=== PATIENT | female | born 1980 | race Caucasian/White ===

== ENCOUNTER 2019-02-18 19:20 | Emergency (ER) | payer MEDICARE ==
[2019-02-18] MEDS ORDERED: Fentanyl 100 MCG/2 ML VIAL ONE ×2 (19:34→20:31)
[2019-02-18 20:01] LABS: #Basophils 0.1 thou/uL (0.0-0.2); #Eosinphils 0.1 thou/uL (0.0-0.7); #Lymphocytes 0.6 thou/uL (1.20-3.40); #Monocytes 0.7 thou/uL (0.11-0.59); #Neutrophils 3.4 thou/uL (1.40-6.50); %Basophils 2.2 % (0.0-1.0); %Eosinophils 1.4 % (0.0-10.0); %Lymphocytes 12.7 % (21.0-51.0); %Monocytes 14.7 % (0.0-10.0); Hemoglobin 11.8 g/dL (12.0-16.0); Mean Corpuscular HGB CONC 32.8 g/dL (32.0-36.0); Mean Corpuscular Hemoglobin 32.3 pg (27.0-31.0); Mean Corpuscular Volume 98.6 fL (78.0-98.0); Mean Platelet Volume 7.3 fL (7.4-10.4); Platelet Count 111 thou/uL (130-400); RBC Distribution Width 14.8 % (11.5-14.5); Red Blood Cell (RBC) Count 3.65 mill/uL (4.20-5.40); White Blood Cell (WBC) Count 4.9 thou/uL (4.8-10.8)
[2019-02-18 20:02] LABS: ALT (SGPT) 65 U/L (8-55); AST (SGOT) 100 U/L (5-34); Albumin 4.2 g/dL (3.5-5.0); Alkaline Phosphatase 67 U/L (40-110); Anion Gap 16 mmol/L (10-20); BUN (Urea Nitrogen) 19 mg/dL (7.0-18.7); Bilirubin, Total 0.5 mg/dL (0.2-1.2); Calc. Creatinine Clearance 0 mL/min (70-130); Calcium 8.8 mg/dL (7.8-10.44); Carbon Dioxide 24 mmol/L (22-29); Chloride 102 mmol/L (98-107); Estimated GFR-MDRD 52; Globulin 2.9 g/dL (2.4-3.5); Glucose 85 mg/dL (70-105); Potassium 3.9 mmol/L (3.5-5.1); Protein, Total 7.1 g/dL (6.0-8.3); Sodium 138 mmol/L (136-145)
[2019-02-18 20:03] LABS: Platelet Morphology Comment Appears Decreased
[2019-02-18 20:25] LABS: Pregnancy Test - Urine (BHCG) Negative (Negative); Pregu Control Background? CLEAR/WHITE (CLR/WHITE); Pregu Control Bar Appear? YES (CONTROL BAR); Specific Gravity 1.025 (1.002-1.036)
[2019-02-18 20:26] LABS: Bilirubin Negative (Negative); Blood, Urine Moderate (Negative); Clarity Hazy (Clear); Glucose, Urine (Dipstick) Negative (Negative); Leukocyte Trace (Negative); Nitrite Positive (Negative); Protein, Urine (Dipstick) Trace mg/dL (Neg-Trace); Urobilinogen 0.2 mg/dL (Less than 2)
[2019-02-18 20:32] LABS: Bacteria/HPF 3+ HPF (None Seen); Squamous Epithelial 0-3 HPF (0-3); WBC/HPF 0-3 HPF (0-3)
--- NOTE | 2019-02-18 20:46 | CT ---
CT ABDOMEN AND PELVIS WITH IV CONTRAST 02/18/2019 CLINICAL INFORMATION: Right lower quadrant abdominal pain and bilateral hip pain. COMPARISON: 03/07/2017 Technique: Multiple contiguous axial CT images are obtained through the abdomen and pelvis with IV contrast. Cor onal reformatted images are provided. FINDINGS: Lower Chest: Lung bases are clear. A small pericardial effusion is again identified and similar to th e prior study in 2017. Vessels: The abdominal aorta is normal in caliber without evidence of an aortic dissection. Abdomen: Portal vein:Patent Gallbladder: Within normal limits for CT imaging. Liver: within normal limits. Spleen: Calcified granulomata are again seen in the spleen. Pancreas: within normal limits. Adrenals: within normal limits. Kidneys: within normal limits. Bowel: Small amount of retained fecal material is seen throughout the colon. Loops of small bowel are normal in caliber. Fluid is seen in the distal esophagus suggesting mild gastroesophageal reflux. There is a probable tiny hiatal hernia present. Appendix: The appendix is distended with gas without CT findings to suggest appendicitis. Peritoneum: A tiny amount of free fluid is seen in the pelvis. However the pelvis is not well evaluat ed due to artifact secondary to bilateral total hip prostheses. Mesentery and Retroperitoneum: No enlarged mesenteric or retroperitoneal lymph nodes. Abdominal Wall: within normal limits. Pelvis: Reproductive Organs: No pelvic masses. Pelvis within normal limits. Bladder: Incompletely obscured due to decompressed state of the urinary bladder as well as significan t artifact from bilateral total hip prostheses. Bones: Bilateral total hip prostheses with minimal degenerative changes in the spine. IMPRESSION: 1. Tiny amount of free fluid in the pelvis which may be physiologic. 2. Small pericardial effusion which was also seen on prior exam. 3. No CT evidence of appendicitis. 4. Small amount of retained fecal material seen throughout the colon. 5. No acute findings are seen in the abdomen or pelvis.
== END 2019-02-18 21:05 | disposition home or self-care (01) ==
LOC: BURERS 19:20
DX: M25.552 Pain in left hip (principal); M25.551 Pain in right hip; I10 Essential (primary) hypertension
CPT/HCPCS: 74177; 80053; 81003; 81015; 81025; 85025; 96374; 96376; J3010

== ENCOUNTER 2019-08-20 10:57 | Emergency (ER) | payer MEDICARE | END 2019-08-20 11:27 | disposition home or self-care (01) | LOC: BURERS 10:57 | DX: H00.012 Hordeolum externum right lower eyelid (principal); I10 Essential (primary) hypertension | CPT/HCPCS: 99283 ==

== ENCOUNTER 2019-10-14 08:06 | Emergency (ER) | payer OTHER ==
[2019-10-14] MEDS ORDERED: Sulfameth/Trimethoprim DS 800-160mg TAB ONE (08:34)
== END 2019-10-14 08:39 | disposition home or self-care (01) ==
LOC: BURERS 08:06
DX: H01.002 Unspecified blepharitis right lower eyelid (principal); H00.12 Chalazion right lower eyelid
CPT/HCPCS: 99283

== ENCOUNTER 2020-10-14 17:25 | Emergency (ER) | payer MEDICARE, OTHER | END 2020-10-14 18:20 | disposition home or self-care (01) | LOC: BURERS 17:25 | DX: M25.551 Pain in right hip (principal); M25.561 Pain in right knee; Z85.6 Personal history of leukemia | CPT/HCPCS: 99281 ==